=== PATIENT | male | born 1940 | race Caucasian/White ===

== ENCOUNTER 2016-10-06 08:45 | Day surgery (SDC) | payer OTHER, MEDICARE ==
[~2016-10-06 08:45] MED LIST: CLINDAMYCIN 600 MG PREMIX 50 ML IV ONE; IV START KIT ONE; SODIUM CHLORIDE 0.9% 1,000 ML ONE
[2016-10-06] MEDS ORDERED: CLINDAMYCIN 600 MG PREMIX 50 ML IV PRN (09:00)
[2016-10-06] MEDS ORDERED: BUPIVACAINE 0.5% (PRES FREE) 30 ML VIAL ONE (09:28)
[2016-10-06] MEDS ORDERED: BACITRACIN 1 APPLIC/500 UNIT PACKET TP ONE (09:28)
[2016-10-06] MEDS ORDERED: NEOMY SULF/POLYMYXIN B SULFATE 1 ML AMP IR ONE (09:37)
[2016-10-06] MEDS ORDERED: FENTANYL 250 MCG/5 ML AMP ONE (09:38)
[2016-10-06] MEDS ORDERED: MIDAZOLAM HCL 1 MG/ML 2ML VIAL ONE (09:38)
[2016-10-06] MEDS ORDERED: ONDANSETRON 4 MG/2ML 2 ML VIAL ONE (09:55)
[2016-10-06] MEDS ORDERED: PROPOFOL 20 ML IV ONE ×3 (09:55→10:57)
[2016-10-06] MEDS ORDERED: DIPHENHYDRAMINE HCL 50 MG/1 ML VIAL ONE (10:10)
[2016-10-06] MEDS ORDERED: EPHEDRINE SULFATE UD SYR 25 MG 25 MG/5 ML SYRINGE IV ONE ×3 (10:10→10:49)
[2016-10-06] MEDS ORDERED: SUCCINYLCHOLINE CHL 20 MG/ML DOSE ONE (10:10)
[2016-10-06] MEDS ORDERED: ATROPINE SULFATE 0.4 MG/1 ML VIAL IV PRN (10:27)
[2016-10-06] MEDS ORDERED: PROMETHAZINE HCL 25 MG/ML VIAL IM PRN (10:27)
[2016-10-06] MEDS ORDERED: FENTANYL 100 MCG/2 ML VIAL IV PRN ×2 (10:27)
[2016-10-06] MEDS ORDERED: ONDANSETRON 4 MG/2ML 2 ML VIAL IV PRN ×2 (10:27→11:44)
[2016-10-06] MEDS ORDERED: NALOXONE HCL 0.4 MG/ML VIAL IV PRN (10:27)
[2016-10-06] MEDS ORDERED: SODIUM CHLORIDE 0.9% 1,000 ML IV SCH (10:30)
[2016-10-06] MEDS ORDERED: LACTATED RINGERS 1,000 ML ONE (11:37)
[2016-10-06] MEDS ORDERED: HYDROCODONE/ACETAMINOPHEN 5/325MG TABLET PO PRN (11:44)
[2016-10-06] MEDS ORDERED: MORPHINE SULFATE 2 MG/ML SYRINGE IV PRN (11:44)
[2016-10-06] MEDS ORDERED: MORPHINE SULFATE 4 MG/ML SYRINGE IV PRN (11:54)
[2016-10-06] MEDS ORDERED: MORPHINE SULFATE 10 MG/ML SYRINGE IV PRN (11:55)
--- NOTE | 2016-10-06 13:07 | OP ---
KIMBERLEY HOLDER [id number] DATE OF OPERATION: October 06, 2016 SURGEON: Jamar Mckinley M.D. FINISH CARPENTER: Suleiman ANESTHEISA: Spinal. PREOPERATIVE DIAGNOSIS: Symptomatic large left hydrocele. POSTOPERATIVE DIAGNOSES: 1. Massive left hydrocele with reactive wall. 2. Apparent diffuse inflammation of left testis and its tunics and epididymis including cyst formation in epididymis in between testis and epididymis. PROCEDURES: 1. EXCISION OF HYDROCELE. 2. LEFT ORCHIECTOMY. SPECIMENS: Left intrascrotal contents including a large hydrocele sac. INDICATIONS: A 76-year-old man with greater than 4 1/2 year history of increasing left intrascrotal distention without focal pain but with discomfort from space filling problem. This has become increasingly bothersome and at this point, he elects surgical intervention. He has a past history of a right radical orchiectomy for lymphoma in 1994 for which he was subsequently treated with systemic therapy. FINDINGS: Absent right testis as expected. Marked distention of the left intrascrotal contents. Thickened hydrocele wall with increased vascularity compared to usual. Dark yellow fluid, but clear, within left hydrocele. Irregular speckled raised lesions on left testicle and firm distention of the epididymis with some cyst formation apparent between the left testicle and the epididymis superiorly and posteriorly. It was felt that the process involving the testicle and epididymis was a likely source of the hydrocele and very likely that complications would ensue if this process was allowed to continue after an isolated hydrocele repair. The situation was described to the patient's , and she agreed to include orchiectomy in this operation, and the patient had been forewarned of this possibility. PROCEDURE: The patient was identified and brought to the operating room where spinal anesthetic was applied and that he was left in the supine position. The lower abdomen, genital and groin regions were prepped and draped sterilely. The midline of the scrotum was marked and treated with 0.5% Marcaine. A long incision was opened in the midline raphe and we progressively dissected through the dartos and then on to the hydrocele sac. We spent considerable amount of time freeing up the hydrocele and mobilizing it into the wound. Once this had been completed, we opened the hydrocele sac anteriorly and drained the dark, clear yellow fluid. Next, we opened the sac further on the anterior aspect allowing us to view the contents within. At this point, we identified the pathological process involving the testis and epididymis. Knowing the consequences of allowing this to return to the hemiscrotum, I discussed the situation with his , and we agreed to proceed with orchiectomy in addition to removal of the hydrocele sac. Therefore, we dissected the contents along the cord structures. I took down the cord structures themselves in small increments using #2 silk suture ligatures proximally to secure the stumps. Then, I completed resection of the hydrocele sac and removed the specimens from the field. Next, we inspected the inner aspect of the scrotal wall and lightly cauterized small vessels, and then irrigated with genitourinary irrigant. A 1/4 inch [place] drain was passed through a stab incision inferiorly and into the left hemiscrotum. A #2-0 nylon suture was used to secure it at the level of the skin. Next, the dartos and subcutaneous tissue of the scrotal wound was closed with running #3-0 Vicryl suture. Skin itself was reapproximated with interrupted vertical mattress sutures of #4-0 Chromic. Antibiotic ointment was applied to the suture line underneath Xeroform gauze and then the entire area was compressed snugly with the gauze and a supporter. Estimated blood loss less than 20 mL. Sponge and needle counts were correct. No early complications. The patient tolerated the procedure well and was taken in stable condition to the postanesthesia room. cc: Bernardo Marie M.D.
--- NOTE | 2016-10-08 14:28 | SURGPATH ---
[facility], [facility]. [address] [place] [id number] Patient Name: KIMBERLEY HOLDER MR#: [id number] : 1940 Gender: M Specimen #: [id number] Collected: 10/06/2016 Received: 10/07/2016 Reported: 10/08/2016 Submitting Phys: ALEXA REYES Copy To Phys: DOMITILA LEWIS [facility] Addendum Present Clinical History / Pre-Operative Diagnosis: MASSIVE HYDROCELE APPARENT TESTICULAR SOURCE, WITH INFLAMED TESTIS AND EPIDIDYMIS Specimen Source / Surgical Procedure Performed: LEFT INTRASCROTAL CONTENTS HIGH PRIORITY DIAGNOSIS. 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 Addendum Date Reported: 10/15/2016 Signed Out Addendum Diagnosis THIS CASE WAS SENT FOR ADDITIONAL TESTING: FISH Results: Normal Chromosome Results: None KARYOTYPE RESULTS: None IMPRESSIONS AND RECOMMENDATIONS: Fluorescent in situ hybridization (FISH) was performed with a lymphoma probe panel. Probe sets and number of cells scored are listed below. There was no evidence for rearrangement involving any of the probe regions. (Comment: This interphase FISH study assesses only the probe-specific regions listed below. It is not intended to stand alone, but rather to provide supplemental information to routine cytogenetic studies, clinical assessment and pathological findings.) FISH ANALYSIS SUMMARY: Cells Scored: 100 Probe(s): Osorio MYC (8q24) break-apart Cells Scored: 100 Probe(s): Osorio BCL6 (3q27) break-apart Cells Scored: 100 Probe(s): Osorio LSI IGH (14q32) (SG) / BCL2 (18q21) (SO) t(14;18) Cells Scored: 100 Probe(s): Osorio LSI IGH (14q32) (SG) / CCND1 (11q13) (SO) t(11;14) The clinical interpretation was made by the clinical flame gouger. Rendering Diagnostician: Cathy Rahman PhD, AB, [facility] Clinical Neon Installer Rendering Diagnostician: Cathy Byrd MD, AB, [facility] Clinical Aeronautical Engineering Teacher Testing Performed at: [facility]; [employer]; [place], [place] [address] Please see complete report under separate cover. 10/15/2016 Electronically Signed Out Migel Laureano M.D. Gross Description: The specimen is received in formalin labeled with the patient's name. The specimen consists of a 110 g, 10.0 x 8.0 x 3.5 cm aggregate of dyson-purple fibromembranous tissue, soft tissue, and a solid nodule. The central gracia firm solid nodule is 6.5 x 3.5 x 3.0 cm with areas of hemorrhage. There is no identifiable normal testicular tissue. A-E. denial management representative Elissa [place] Microscopic Description: Sections of the testis show areas of hemorrhage, necrosis, destruction of the normal architecture, and infiltration by malignant cells. The malignant cells lack cohesion, nesting and gland formation. The cells have scanty cytoplasm, large pleomorphic nuclei and focally prominent nucleoli. Mitoses are abundant. Sections from the periphery of the testis and surrounding the epididymis contain better preserved neoplastic cells. Lymphoma is favored, however, a germ cell tumor is not entirely excluded. Immunostains including pancytokeratin, CD3, CD20, CD5, CD10, bcl-2, bcl-6, MUM-1 and MYC are performed. The cells of concern diffusely express CD20 consistent with B cell origin. Some of the smaller background lymphocytes are T cells and express CD3 and CD5. The vast majority of the malignant cells express bcl-2, bcl-6 and MUM-1. There is no staining of the neoplastic cells with pancytokeratin and CD10. Approximately 40% of the neoplastic cells express MYC. This case is reviewed by Grace Aguirre M.D. who agrees with this interpretation. (Analyte-specific reagents (ASR) are used in many laboratory tests necessary for standard medical care and generally do not require FDA approval. This test was developed and its performance characteristics determined by [facility]. It has not been cleared or approved by the U.S. Food and Drug Administration. [facility] is certified under the Clinical Laboratory Improvement Amendments of 1988 as qualified to perform high complexity clinical laboratory testing. All controls stain as expected.) 1: 88223, 34148, 09700, 20607, 76317, 20390, 45167, 62549, 34115, 80078 C62.12
== END 2016-10-06 14:05 | disposition home or self-care (01) ==
LOC: SDC 08:45
PROVIDERS: ATTEND Urology
PROC: 0VTB0ZZ Resection of Left Testis, Open Approach (ICD-10-PCS; principal; 2016-10-06)
DX: C62.12 Malignant neoplasm of descended left testis (principal); N45.3 Epididymo-orchitis; Z90.79 Acquired absence of other genital organ(s); Z85.72 Personal history of non-Hodgkin lymphomas; Z95.1 Presence of aortocoronary bypass graft; E11.9 Type 2 diabetes mellitus without complications; E66.9 Obesity, unspecified; I10 Essential (primary) hypertension; E78.5 Hyperlipidemia, unspecified; I25.10 Atherosclerotic heart disease of native coronary artery without angina pectoris; Z87.891 Personal history of nicotine dependence; Z79.84 Long term (current) use of oral hypoglycemic drugs
CPT/HCPCS: 54520; J1200; J3010; J2250; J2405; J7120; J7030; A9270